=== PATIENT | female | born 1960 | race Caucasian/White ===

== ENCOUNTER → 2023-07-18 08:11 | Outpatient (REF) | payer BC, SELFPAY | LOC: DHVS 08:11 | PROVIDERS: ATTENDING PHYSICIAN Surgery Vascular Surgery | DX: I65.23 Occlusion and stenosis of bilateral carotid arteries (principal); I73.9 Peripheral vascular disease, unspecified | CPT/HCPCS: 93880; 93923 ==

== ENCOUNTER → 2024-07-17 07:52 | Outpatient (REF) | payer BC, SELFPAY | LOC: RAD 07:52 | PROVIDERS: ATTENDING PHYSICIAN Surgery Vascular Surgery; FAMILY PHYSICIAN Internal Medicine | DX: I65.23 Occlusion and stenosis of bilateral carotid arteries (principal); I73.9 Peripheral vascular disease, unspecified | CPT/HCPCS: 93880; 93922; 93925 ==